=== PATIENT | female | born 1940 | race Caucasian/White ===

== ENCOUNTER 2016-09-04 08:22 | Day surgery (SDC) | payer OTHER ==
[2016-09-04] MEDS: OCUFEN 0.03% OPTH SOL OP PRN ×3 (07:25→07:55)
[2016-09-04] MEDS: CYCLOGYL 2% OPTH OP PRN ×3 (07:25→07:35)
[2016-09-04] MEDS: TETRACAINE 0.5% UNIT-DOSE OP PRN ×3 (07:25→07:55)
[2016-09-04] MEDS: AK-DILATE 10% OPTH SOL OP PRN ×3 (07:25→07:35)
[~2016-09-04 08:22] MED LIST: AK-DILATE 10% OPTH SOL OP PRN; BETADINE OPTH PREP OP ONE; CYCLOGYL 2% OPTH OP PRN; EPINEPHRINE 1:1,000 AMP IR ONE; LIDOCAINE 1 % AMP 2 ML (SUTURES) INJ ONE; OCUFEN 0.03% OPTH SOL OP PRN; TETRACAINE 0.5% UNIT-DOSE OP PRN; TIMOPTIC 0.5% OPTH OP ONE
[2016-09-04] MEDS ORDERED: DIAMOX ONE (09:00)
[2016-09-04] MEDS ORDERED: DIAMOX PO ONE (09:00)
[2016-09-04 09:47] VITALS: BP 124/76; TEMP 98.6
[2016-09-04] MEDS ORDERED: TETRACAINE 0.5% UNIT-DOSE OP PRN (10:35)
== END 2016-09-04 09:49 | disposition home or self-care (01) ==
LOC: SURG 08:22
PROVIDERS: ATTEND Ophthalmology
DX: H25.011 Cortical age-related cataract, right eye (principal)

== ENCOUNTER 2016-10-09 06:41 | Day surgery (SDC) ==
--- NOTE | 2016-09-05 09:28 | OP ---
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 OPERATION PHACOEMULSIFICATION ASPIRATION OF CATARACT LEFT EYE. PLACEMENT OF POSTERIOR CHAMBER LENS. PHACO TIME 45 TO 40 SECONDS AT 7% POWER. LENS MODEL TECUCHE [id number]. DIOPTER +25.5D. TECHNIQUE: CLEAR CORNEA. ANESTHESIA: TOPICAL ANESTHESIA W/ANESTHESIA MONITORING. OPERATIVE REPORT: Topical anesthesia consisting of Tetracaine was applied to the cornea and Xylocaine Methyl Paraben free of MFP was injected intracamerally into the anterior chamber. The patient was then brought into the operating room , prepped and draped in the usual ophthalmic manner. A lid speculum was placed and the operating microscope was used. A paracentesis was made at the 3 o' clock position. A clear corneal incision was made just out to the limbus. The anterior chamber was entered just inside the clear cornea. Viscoelastic was injected into the anterior chamber. A capsulotomy was performed with a bent # 27 gauge needle. Phacoemulsification was then performed in the posterior chamber. After completion of the phacoemulsification, residual cortical material was aspirated with the irrigation-aspiration system. The posterior capsule was polished. Viscoelastic was injected into the anterior and posterior chambers to inflate the capsular bag. Lens were placed via an Unfolder system and stabilized in the bag. Viscoelastic was removed from the anterior chamber. The wound was checked for any leakage. The four sponges were removed from the fornix. Topical antibiotic steroid and nonsteroidal drops were also applied to the cornea. A Rosenberg shield was applied. The patient left the operating room in good condition without any complications. INTRAOPERATIVE MEDICATIONS: Xylocaine Methyl Paraben Free MPF MTDD
[~2016-10-09 06:41] MED LIST changes: -AK-DILATE 10% OPTH SOL OP PRN; -BETADINE OPTH PREP OP ONE; -CYCLOGYL 2% OPTH OP PRN; -EPINEPHRINE 1:1,000 AMP IR ONE; -LIDOCAINE 1 % AMP 2 ML (SUTURES) INJ ONE; -OCUFEN 0.03% OPTH SOL OP PRN; +SUBLIMAZE ONE; -TETRACAINE 0.5% UNIT-DOSE OP PRN; -TIMOPTIC 0.5% OPTH OP ONE; +VERSED ONE
[2016-10-09] MEDS: TETRACAINE 0.5% UNIT-DOSE OP PRN ×3 (07:05→07:35)
[2016-10-09] MEDS: AK-DILATE 10% OPTH SOL OP PRN ×3 (07:05→07:15)
[2016-10-09] MEDS: CYCLOGYL 2% OPTH OP PRN ×3 (07:05→07:15)
[2016-10-09] MEDS: OCUFEN 0.03% OPTH SOL OP PRN ×3 (07:05→07:35)
[2016-10-09] MEDS ORDERED: TETRACAINE 0.5% OPTH SOL OP ONE (07:11)
[2016-10-09] MEDS ORDERED: LIDOCAINE 1% 20 ML MDV ONE (07:15)
[2016-10-09] MEDS ORDERED: LIDOCAINE 1% 20 ML MDV ID ONE (07:15)
[2016-10-09] MEDS ORDERED: SUBLIMAZE ONE (08:20)
[2016-10-09] MEDS ORDERED: VERSED ONE (08:20)
[2016-10-09] MEDS ORDERED: BETADINE OPTH PREP OP ONE (08:32)
[2016-10-09] MEDS ORDERED: EPINEPHRINE 1:1,000 AMP IR ONE (08:33)
[2016-10-09] MEDS ORDERED: LIDOCAINE 1 % AMP 5 ML (SUTURES) INJ ONE (08:35)
[2016-10-09] MEDS ORDERED: OCUFLOX 0.3% OPTH SOL OP ONE (08:45)
[2016-10-09] MEDS ORDERED: TIMOPTIC 0.5% OPTH OP ONE (08:45)
[2016-10-09 09:39] VITALS: BP 119/66; TEMP 98.7
[2016-10-09] MEDS ORDERED: DIAMOX PO ONE (09:40)
[2016-10-09] MEDS ORDERED: DIAMOX ONE (09:40)
== END 2016-10-09 09:55 | disposition home or self-care (01) ==
LOC: SURG 06:41
PROVIDERS: ATTEND Ophthalmology
DX: H25.12 Age-related nuclear cataract, left eye (principal); H25.042 Posterior subcapsular polar age-related cataract, left eye